=== PATIENT | male | born 1980 | race Caucasian/White ===

== ENCOUNTER 2024-08-14 19:32 | Emergency (ER) | payer SELFPAY ==
[~2024-08-14] VITALS: Ht 170.2 cm; Wt 88.5 kg
[2024-08-14] MEDS ORDERED: IBUPROFEN600 MG PO (20:34)
[2024-08-14] MEDS ORDERED: ZANAFLEX4 MG PO (20:34)
[2024-08-14] MEDS ORDERED: PREDNISONE20 MG PO (20:34)
[2024-08-14] MEDS: KETOROLAC TROMETHAMINE 30 MG/ML VIAL IM ONE (20:48)
[2024-08-14] MEDS: DEXAMETHASONE SOD PHOS INJ 4 MG/ML SDV IM ONE (20:49)
[2024-08-14] MEDS: ACETAMINOPHEN 325 MG TAB PO ONE (20:49)
[2024-08-14 20:50] VITALS: PULSE 90; RESP 20; TEMP 98
[2024-08-14 21:19] VITALS: BP 148/83; PULSE 90; RESP 20; TEMP 98; O2SAT 97
== END 2024-08-14 20:56 | disposition home or self-care (01) ==
LOC: FSED 19:35
DX: M54.42 Lumbago with sciatica, left side (principal); G58.8 Other specified mononeuropathies
CPT/HCPCS: 96372; 99283; J1100; J1885